=== PATIENT | female | born 1960 | race Caucasian/White ===

== ENCOUNTER → 2021-02-21 | Outpatient (CLI) | payer BC ==
[~2021-02-21] MED LIST: ACET-93 PO; ALPR0.5T7 PO; CITA40TA11 PO; FLUC100T PO; IBUP-2473 PO; LEVO150T6 PO; LEVO175T5; LEVO500T2 PO; LISI1TAB46 PO; LOVA40TA2 PO; SULF-222 PO; TERC45CR VG
--- NOTE | 2021-02-21 14:22 | Diagnostic Imaging Report ---
INDICATION: 2-D and 3-D digital screening with CAD. COMPARED: 03/2018, 03/2016 and 04/2014. FINDINGS: There are scattered fibroglandular densities in the breasts present. No breast mass, spiculated lesion, architectural distortion or suspicious calcifications. No interval change. IMPRESSION: Stable negative mammogram BI-RADS Category 1 ACR BI-RADS Category 1: Negative. Result letter will be mailed to the patient. Note: At least 10% of breast cancer is not imaged by mammography. Dictated by: Dictated on workstation # [id number]
== END ==
LOC: RAD 10:00
PROVIDERS: ATTEND Registered Nurse
DX: Z12.31 Encounter for screening mammogram for malignant neoplasm of breast (principal)
CPT/HCPCS: 77063; 77067

== ENCOUNTER → 2023-05-22 | Outpatient (CLI) | payer BC ==
[~2023-05-22] MED LIST changes: -CITA40TA11 PO; +CITA40TA13 PO
--- NOTE | 2023-05-23 08:50 | Diagnostic Imaging Report ---
Indication: Routine screening. Comparison is made with prior mammogram 02/21/2021 and 03/28/2018. 2-D and 3-D bilateral screening mammography was performed with CAD. The current study was also evaluated with a Computer Aided Detection (CAD) system. Scattered fibroglandular densities are identified bilaterally. The parenchymal pattern is stable. No mass or malignant-appearing microcalcifications are identified. There are benign calcifications. Axillae are unremarkable. IMPRESSION: BI-RADS Category 2 No mammographic features suspicious for malignancy are identified. ACR BI-RADS Category 2: Benign findings. Result letter will be mailed to the patient. Note: At least 10% of breast cancer is not imaged by mammography. Dictated by: Dictated on workstation # [id number]
== END ==
LOC: RAD 14:43
PROVIDERS: ATTEND Registered Nurse
DX: Z12.31 Encounter for screening mammogram for malignant neoplasm of breast (principal)
CPT/HCPCS: 77063; 77067